=== PATIENT | female | born 1955 | race Two or more races ===

== ENCOUNTER 2019-04-01 18:07 | Inpatient (IN) | payer MEDICAID ==
[~2019-04-01] VITALS: Ht 170.2 cm; Wt 133.8 kg
--- NOTE | 2019-04-01 18:43 | NUR ---
Pt awake but drowsy, able to follow commands, SR on monitor, saturation above 92% on 4 l via nasal cannula. vital signs stable, no complains of pain verbalized.
[2019-04-01] MEDS ORDERED: ALBUTEROL FS 2.5 MG/3 ML VIAL.NEB NEB ONE (19:00)
[2019-04-01] MEDS ORDERED: IPRATROPIUM NEB FS 0.5 MG/2.5 ML AMPUL.NEB NEB ONE (19:00)
[2019-04-01] MEDS ORDERED: methylPREDNISolone SOD SUCC 125 MG/2ML VIAL IV ONE (19:00)
[2019-04-01 19:08] LABS: BASOPHILS # (AUTO) 0.1 /CMM (0.0-0.2); BASOPHILS % (AUTO) 0.5 % (0.0-2.0); EOSINOPHILS % (AUTO) 0.1 % (0.0-6.0); HEMATOCRIT 43 % (33-45); HEMOGLOBIN 13.6 g/dL (11.5-14.8); LYMPHOCYTES # (AUTO) 0.4 /CMM (0.8-4.8); LYMPHOCYTES % (AUTO) 3.9 % (20.0-44.0); MEAN CORPUSCULAR HGB CONC 32 g/dl (31.0-36.0); MEAN CORPUSCULAR VOLUME 85 fL (82-100); MONOCYTES # (AUTO) 0.5 /CMM (0.1-1.30); MONOCYTES % (AUTO) 4.8 % (2.0-12.0); NEUTROPHILS # (AUTO) 10.3 /CMM (1.8-8.9); NEUTROPHILS % (AUTO) 90.7 % (43.0-81.0); PLATELET COUNT (AUTO) 321 /CMM (150-450); RED BLOOD CELL COUNT(AUTO) 5.03 MIL/uL (4.0-5.2); WHITE BLOOD COUNT (AUTO) 11.3 K/uL (4.3-11.0)
[2019-04-01] MEDS ORDERED: methylPREDNISolone SOD SUCC 125 MG/2ML VIAL ONE (19:08)
[2019-04-01] MEDS ORDERED: ALPR1TAB7 PO (19:11)
[2019-04-01] MEDS ORDERED: IBUP-1957 PO (19:11)
[2019-04-01] MEDS ORDERED: TRAZ-252 PO (19:11)
[2019-04-01] MEDS ORDERED: FLUO-120 PO (19:11)
[2019-04-01] MEDS ORDERED: UNK INHALER IH (19:12)
--- NOTE | 2019-04-01 19:15 | NUR ---
PT REFUSED SOLU MEDROL. PER PT, SHE REACTS BAD TO THE MEDICATION AND MAKES HER VERY ANXIOUS. PA AWARE
--- NOTE | 2019-04-01 19:15 | NUR ---
CALLED [facility]. DATA PROCESSING SPECIALIST WAS PAGED
--- NOTE | 2019-04-01 19:18 | NUR ---
RT PAGED FOR BREATHING TX
--- NOTE | 2019-04-01 19:22 | NUR ---
Pt's care endorsed to LOGAN Johnson for continuity of care. nissa in low and locked position. pt appears in no distress.
[2019-04-01 19:25] LABS: CALCIUM, SERUM 8.9 mg/dL (8.5-10.1); CREATININE 1.3 mg/dL (0.6-1.3); POTASSIUM 4.7 mmol/L (3.5-5.1)
[2019-04-01] MEDS ORDERED: ALBUTEROL FS 2.5 MG/0.5 ML VIAL.NEB ONE (19:29)
[2019-04-01] MEDS ORDERED: IPRATROPIUM NEB FS 0.5 MG/2.5 ML AMPUL.NEB ONE (19:29)
--- NOTE | 2019-04-01 19:40 | NUR ---
SPOKE TO HOUSE SUP FOR TELE BED
--- NOTE | 2019-04-01 19:42 | NUR ---
XRAY AND RT AT BEDSIDE
--- NOTE | 2019-04-01 19:52 | NUR ---
TELE BED 111-1
[2019-04-01] MEDS ORDERED: IV NS 0.9% 1,000 ML BAG IV ONE (20:00)
--- NOTE | 2019-04-01 20:18 | NUR ---
PT AMBULATED TO BATH ROOM ON HER OWN.
[2019-04-01] MEDS ORDERED: *INSULIN REGULAR(HUMULIN R)HUM 100 UNIT/ML VIAL SQ PRN (20:30)
[2019-04-01] MEDS ORDERED: DEXTROSE 50%-WATER 50 ML DISP.SYRIN IV PRN (20:30)
[2019-04-01] MEDS ORDERED: HYDROCODONE/APAP 5/325MG 1 EACH TABLET PO PRN (20:30)
[2019-04-01] MEDS ORDERED: ASPIRIN 325 MG TABLET PO SCH (20:30)
[2019-04-01] MEDS ORDERED: MAGNESIUM HYDROXIDE 30 ML UDC PO PRN (20:30)
[2019-04-01] MEDS ORDERED: Z GUARD REMEDY 2 OZ OINT TP PRN (20:30)
[2019-04-01] MEDS ORDERED: ONDANSETRON HCL/PF 4 MG/2 ML VIAL IVP PRN (20:30)
[2019-04-01] MEDS ORDERED: MAG HYDROX/AL HYDROX/SIMETH 30 ML UDC PO PRN (20:30)
[2019-04-01] MEDS ORDERED: IOHEXOL-350 100 ML VIAL IV ONE (20:37)
[2019-04-01] MEDS ORDERED: CT SWABBABLE VALVE TRANS SET 1 EA INFUS.SET MC ONE (20:38)
[2019-04-01] MEDS ORDERED: IV NS 0.9% 250 ML IV ONE (20:38)
--- NOTE | 2019-04-01 20:47 | NUR ---
PT TO CT ON AVA. 2ND IV LINE OBTAINED ON R AC 20G.
[2019-04-01] MEDS ORDERED: methylPREDNISolone SOD SUCC 125 MG/2ML VIAL IV SCH (21:00)
--- NOTE | 2019-04-01 21:22 | NUR ---
CALLED FOR AN ICU BED
--- NOTE | 2019-04-01 21:23 | NUR ---
ICU 256
[2019-04-01] MEDS ORDERED: NALOXONE HCL 0.4 MG/ML AMPUL ONE (21:24)
[2019-04-01] MEDS: NALOXONE HCL 0.4 MG/ML AMPUL IV PRN (21:32)
--- NOTE | 2019-04-01 21:35 | NUR ---
PT WAS NOTED LETHARGIC AND BREATHING DEEP AND SHALLOW WITH O2 SAT IN THE MID 60% MD MADE AWARE AND WAS AT BEDSIDE. PT WAS ARROUSABLE WITH VERBAL STIMULI. MD ORDERED TO GIVE NARCAN 0.4MG IV AND O2 TO GET PT O2 SAT IN THE 90%. PT WAS PLACED ON NON REBREATHER MASK @ 15LPM. O2 SAT WENT TO 97% AFTER NARCAN AND O2.
[2019-04-01] MEDS ORDERED: ENOXAPARIN SODIUM 30 MG/0.3 ML DISP.SYRIN ONE (21:36)
[2019-04-01] MEDS ORDERED: ENOXAPARIN SODIUM 100 MG/ML DISP.SYRIN SQ ONE (21:36)
--- NOTE | 2019-04-01 21:43 | NUR ---
PT PLACED ON NC @ 5LPM, YISSEL G@ 93%
--- NOTE | 2019-04-01 21:43 | NUR ---
Percy alamnza in [facility] - 04/01/19 at 2215 by SANDY P
[2019-04-01 21:48] LABS: ABG BASE EXCESS -3.4 mmol/L; ABG PH 7.233 (7.350-7.450); ABG PO2 57.6 mmHg (75.0-100.0); AaDO2 128.3 mmHg; COHb 1.2 % (0.5-1.5); MetHb 0.1 % (0.0-1.5); O2Hb 85.9 % (94.0-97.0); SITE, ABG Right Radial; VENT MODE, BG NASAL CANNULA
--- NOTE | 2019-04-01 21:48 | NUR ---
REPORT GIVEN TO CHILO FORD
[2019-04-01] MEDS ORDERED: ENOXAPARIN SODIUM 120 MG/0.8 ML DISP.SYRIN SQ SCH (22:00)
[2019-04-01 22:07] VITALS: BP 147/92
--- NOTE | 2019-04-01 22:08 | NUR ---
PT TRANSPORTED TO UNIT ON [facility] WITH EMT AND RN AT BEDSIDE W/ ACLS PROTOCOL OBSERVED DURING TRANSPORT. NAD NOTED DURING TRANSPORT. PT TRANSFERRED FROM [facility] TO BED ON HER OWN.
[2019-04-01] MEDS: IV NS 0.9% 1,000 ML IV PRN (22:11)
[2019-04-01] MEDS: METOPROLOL TARTRATE 25 MG TABLET PO SCH (22:12)
[2019-04-01] MEDS: BLOOD SUGAR DIAGNOSTIC 1 EACH STRIP VI SCH (22:34)
[2019-04-01 22:55] VITALS: BP 165/82
[2019-04-01 23:00] VITALS: BP 142/93
[2019-04-01] MEDS ORDERED: hydrALAZINE HCL IV 20 MG VIAL IV PRN (23:00)
--- NOTE | 2019-04-01 23:11 | NUR ---
JAVA LEAD DEVELOPER. ADMISSION. RECEIVED THE PT FROM ER VIA [facility]. PT AWAKE, RASHI LETHARGIC, OXYGEN 4L VIA NASAL CANNULA SAT 92%. PT IS TACHYPNEIC. HOB ELEVATED, IV RT AND LT HAND, WILL CONTINUE TO MONITOR VITALS.
--- NOTE | 2019-04-01 23:14 | NUR ---
FOUNDRY MOLDER MD JAYSON BURGOS AT BED SIDE EVALUATE THE PATIENT. OXYGEN 54L VIA BASAL CANNULA. SAT 80. BIPAP ORDERED. SETTINGS 20/5,RATE IS 16, FIO2 100%, WILL CONTINUE TO MONITOR VITALS.
[2019-04-02] VITALS (31 sets, daily range): BP systolic 99–160; BP diastolic 40–102
[2019-04-02 00:06] LABS: ABG BASE EXCESS -6.5 mmol/L; ABG OXYGEN SATURATION 97.8 % (92.0-98.5); ABG PCO2 66.2 mmHg (35.0-45.0); ABG PH 7.162 (7.350-7.450); ABG PO2 143.6 mmHg (75.0-100.0); AaDO2 503.2 mmHg; COHb 0.9 % (0.5-1.5); MetHb 0.2 % (0.0-1.5); O2Hb 96.7 % (94.0-97.0); PEEP,BG 5 cm H2O; SITE, ABG Right Radial; VENT MODE, BG BIPAP
[2019-04-02] MEDS: NALOXONE HCL 0.4 MG/ML AMPUL IV PRN (00:39)
--- NOTE | 2019-04-02 00:45 | NUR ---
MIG TIG WELDER 1 HOUR AFTER PLACING PT ON BIPAP ABG WAS REPEATED: [id number], [id number], [id number], [id number]. Malou BURNS WAS NOTIFIED AND HE CALLED ER MD FOR INTUBATION. WHEN Malou GUARDADO FROM ER CAME TO ICU HE ORDERED TO PREPARE FOR INTUBATION ETOMIDATE 20 MG & ROCURONIUM 80 MG., WHICH WAS DONE. BUT LATER MD CHANGED HIS MIND TO INTUBATE THE PT. SO MEDS WERE NOT GIVEN AND WERE DISCARDED.
--- NOTE | 2019-04-02 01:00 | NUR ---
HEALTH SCIENCES DEPARTMENT CHAIR ABG DONE, MD JAYSON BURGOS MADE AWARE, CALLED ER MD FOR INTUBATION. ER MD ORDERED [id number] GIVEN. PT IS LETHARGIC. WILL CONTINUE TO MONITOR
--- NOTE | 2019-04-02 01:06 | NUR ---
EXECUTIVE OFFICE MANAGER. FOLEYS CATHETER FG 16 PLACED WITH OUT DIFFICULT, CONCENTRATED URINE DRAINING.
[2019-04-02 01:59] LABS: PEEP,BG 5 cm H2O; SITE, ABG Right Radial
[2019-04-02 02:06] LABS: APPEARANCE,URINE CLEAR (CLEAR); BILIRUBIN,URINE NEGATIVE (NEGATIVE); BLOOD, URINE TRACE-INTA Ery/uL (NEGATIVE); COLOR,URINE YELLOW (YELLOW); KETONES,URINE NEGATIVE (NEGATIVE); LEUKOCYTE ESTERASE ,URINE NEGATIVE (NEGATIVE); NITRITE, URINE NEGATIVE (NEGATIVE); PH,URINE 5.5 (5.0-8.0); PROTEIN,URINE NEGATIVE (NEGATIVE); UGLUCOSE NEGATIVE (NEGATIVE); UROBILINOGEN,URINE 0.2 EU/dL (0.2)
[2019-04-02 02:22] LABS: BACTERIA,URINE Few /HPF (None Seen); SQUAMOUS EPITHELIAL CELL,UR Few /HPF (None Seen); WBC,URINE 0-2 /HPF (0-3)
--- NOTE | 2019-04-02 04:27 | NUR ---
REAL ESTATE INSTRUCTOR URINE DRUG RESULT MADE AWARE,
--- NOTE | 2019-04-02 04:29 | NUR ---
BAND SAW RUNNER, AM CARE, ORAL CARE, BED BATH GIVEN. LINEN CHANGED, REMAINING SAME BIPAP SETTING TOLERATED WELL.IVF NS 75ML/H. HOB ELEVATED, FC PATENT, URINE DRAINING. WILL CONTINUE TO MONITOR VITALS.
[2019-04-02 04:42] LABS: BASOPHILS % (AUTO) 0.2 % (0.0-2.0); HEMATOCRIT 40 % (33-45); HEMOGLOBIN 12.8 g/dL (11.5-14.8); LYMPHOCYTES # (AUTO) 0.7 /CMM (0.8-4.8); LYMPHOCYTES % (AUTO) 5.9 % (20.0-44.0); MEAN CORPUSCULAR HGB CONC 32 g/dl (31.0-36.0); MEAN CORPUSCULAR VOLUME 84 fL (82-100); MONOCYTES # (AUTO) 0.5 /CMM (0.1-1.30); MONOCYTES % (AUTO) 4.6 % (2.0-12.0); NEUTROPHILS # (AUTO) 10.3 /CMM (1.8-8.9); NEUTROPHILS % (AUTO) 89.3 % (43.0-81.0); PLATELET COUNT (AUTO) 307 /CMM (150-450); RED BLOOD CELL COUNT(AUTO) 4.78 MIL/uL (4.0-5.2); WHITE BLOOD COUNT (AUTO) 11.5 K/uL (4.3-11.0)
[2019-04-02 04:55] LABS: CALCIUM, SERUM 8.5 mg/dL (8.5-10.1); CREATININE 0.9 mg/dL (0.6-1.3); MAGNESIUM 1.9 mg/dL (1.8-2.4); PHOSPHORUS 3.7 mg/dL (2.5-4.9); POTASSIUM 4.7 mmol/L (3.5-5.1)
[2019-04-02] MEDS ORDERED: ETOMIDATE 2 MG/ML VIAL IV ONE (07:23)
[2019-04-02] MEDS ORDERED: ROCURONIUM BROMIDE 50 MG/5 ML IV ONE (07:23)
--- NOTE | 2019-04-02 07:30 | NUR ---
DIRECTOR PROCESS IMPROVEMENT INITIAL NOTE RECEIVED PATIENT, ASLEEP, AROUSABLE. NO RESPIRATORY DISTRESS NOTED, ON BIPAP. ON TELE MONITOR SR WITH PAC AND PVC. F/C PATENT, INTACT, DRAINING BY GRAVITY. PERIPHERAL LINES PATENT, INTACT, IVF RUNNING. HOB ELEVATED. SIDE RAILS UP AND LOCKED. BED KEPT AT LOWEST POSITION. CALL LIGHT KEPT WITHIN EASY REACH. WILL CONTINUE TO MONITOR.
--- NOTE | 2019-04-02 07:51 | NUR ---
DANCE TEACHER NOTE SEEN AND EXAMINED BY DR. BUI
--- NOTE | 2019-04-02 08:00 | NUR ---
RT PATIENT AWAKE, ALERT, NO COMPLAINTS OF SOB. WAS REMOVED FROM BIPAP AND PLACED ON SUPPLEMENTAL O2 TOLERATING WELL. WILL CONT TO MONITOR PATIENT CLOSELY
--- NOTE | 2019-04-02 08:00 | NUR ---
FINISHING SUPERVISOR PLASTIC SHEETS NOTE PATIENT AWAKE ALERT AND ORIENTED. PLACED ON NC 6LPM. SIGNIFICANT OTHER ZAHRAA AT BEDSIDE. PER PATIENT, OK TO GIVE ZAHRAA INFORMATION REGARDING HER CONDITION AND ANY UPDATES. CONTACT INFORMATION PLACED IN CHART. WILL CONTINUE TO MONITOR.
[2019-04-02] MEDS: BLOOD SUGAR DIAGNOSTIC 1 EACH STRIP VI SCH ×4 (08:25→21:53)
[2019-04-02] MEDS: ACETAMINOPHEN 325 MG TABLET PO PRN ×2 (08:27→16:34)
[2019-04-02] MEDS: ASPIRIN 325 MG TABLET PO SCH (08:27)
[2019-04-02] MEDS: ENOXAPARIN SODIUM 60 MG/0.6 ML DISP.SYRIN SQ SCH ×2 (08:31→21:54)
--- NOTE | 2019-04-02 08:35 | NUR ---
LABORER CAR BARN NOTE PER DR. BUI DON'T GIVE BETA ALFONZO UNTIL LABORER POLE CREW APPROVES
--- NOTE | 2019-04-02 08:38 | NUR ---
MIDDLE SCHOOL ART TEACHER NOTE PATIENT COMPLAINED OF 8/10 HEADACHE. PRN TYLENOL GIVEN. WILL CONTINUE TO MONITOR.
[2019-04-02] MEDS: METOPROLOL TARTRATE 25 MG TABLET PO SCH ×2 (08:39→21:00)
[2019-04-02] MEDS: INSULIN REGULAR, HUMAN 100 UNIT/ML 3 ML VIAL SQ PRN ×2 (08:54→12:12)
[2019-04-02] MEDS ORDERED: ENOXAPARIN SODIUM 120 MG/0.8 ML DISP.SYRIN SQ SCH (09:00)
[2019-04-02 09:19] LABS: ABG BASE EXCESS -0.7 mmol/L; ABG OXYGEN SATURATION 92.9 % (92.0-98.5); ABG PCO2 60.8 mmHg (35.0-45.0); ABG PO2 68.8 mmHg (75.0-100.0); AaDO2 182.9 mmHg; VENT MODE, BG NASAL CANNULA
[2019-04-02] MEDS: IV NS 0.9% 1,000 ML IV PRN (12:00)
[2019-04-02] MEDS: IPRATROPIUM NEB FS 0.5 MG/2.5 ML AMPUL.NEB NEB SCH ×4 (13:00→23:45)
[2019-04-02 14:12] LABS: ABG BASE EXCESS -2.9 mmol/L; ABG OXYGEN SATURATION 90.4 % (92.0-98.5); ABG PCO2 55.3 mmHg (35.0-45.0); ABG PH 7.268 (7.350-7.450); ABG PO2 63.5 mmHg (75.0-100.0); AaDO2 85.4 mmHg; COHb 0.9 % (0.5-1.5); MetHb 0.2 % (0.0-1.5); O2Hb 89.4 % (94.0-97.0); SITE, ABG Right Radial; VENT MODE, BG 3L N/C
[2019-04-02] MEDS: ALBUTEROL HALF STRENGTH 1.25 MG/3 ML VIAL.NEB NEB SCH ×3 (15:20→23:45)
--- NOTE | 2019-04-02 19:31 | NUR ---
TOBACCO HANGER.INITIAL ASSESSMENT. RECEIVED THE PT REST ON THE BED,AWAKE,ALERT, FOLLOW COMMANDS. OXYGEN 3L VIA NASAL CANNULA. SAT 98%. NO ACUTE DISTRESS NOTED. FAMILY MEDICINE RESIDENT SHOWING NSR. IC RT HAND 20G. IVF NS 75ML/H, HOB ELEVATED, FC PATENT. URINE DRAINING. AFEBRILE. WILL CONTINUE TO MONITOR VITALS
--- NOTE | 2019-04-02 19:40 | NUR ---
MACHINE MAINTENANCE REPAIRER CLOSING NOTE NO SIGNIFICANT CHANGES. PATIENT TOLERATING NC AT 3LPM. DENIES SOB. DENIES PAIN OR DISCOMFORT AT THIS TIME. ATE MEALS INDEPENDENTLY. ALL DUE MEDS GIVEN. IVF RUNNING AT [facility]. LH PERIPHERAL IV PULLED OUT ACCIDENTALLY BY PATIENT AT END OF SHIFT. PER PM NURSE SHE WILL INSERT ANOTHER. ALL NEEDS ANTICIPATED AND MET. FOR NOCTURNAL BIPAP. AM CARE PROVIDED. HOB ELEVATED. SIDE RAILS UP AND LOCKED. BED KEPT AT LOWEST POSITION. CALL LIGHT KEPT WITHIN EASY REACH. CONTINUITY OF CARE ENDORSED TO PM SHIFT.
--- NOTE | 2019-04-02 22:45 | NUR ---
TWISTER TENDER PAPER. PT HEART RATE IS PAUSING 35, METOPROLOL NOT GIVEN 2100. MD BURNS MADE AWARE.
--- NOTE | 2019-04-02 22:46 | NUR ---
RETURN TO FACTORY CLERK SATURATION IS 85. BIPAP PLACED. PT WAS ANXIOUS AND CRYING. PER PATIENT TAKING AT HOME XANAX 2MGX2. NOTIFIED MD BURNS. NEW ORDER RECEIVED.
[2019-04-02] MEDS: ALPRAZOLAM 1 MG TABLET PO SCH (23:28)
[2019-04-03] VITALS (22 sets, daily range): BP systolic 115–154; BP diastolic 66–96
[2019-04-03] MEDS: IV NS 0.9% 1,000 ML IV PRN (00:53)
[2019-04-03] MEDS: IPRATROPIUM NEB FS 0.5 MG/2.5 ML AMPUL.NEB NEB SCH ×6 (02:39→23:16)
[2019-04-03] MEDS: ALBUTEROL HALF STRENGTH 1.25 MG/3 ML VIAL.NEB NEB SCH ×6 (02:39→23:16)
--- NOTE | 2019-04-03 03:20 | NUR ---
BASEBALL INSPECTOR AM CARE.ORAL CARE, BED BATH GIVEN. LINEN CHANGED, REMAINING SAME BIPAP SETTING TOLERATED WELL SAT 98%. PRESS SET UP PERSON SHOWING JUNCTIONAL, IV RT AND LT HAND IVF NS 75 ML/H. HOB ELEVATED, FC PATENT. URINE DRAINING.AFEBRILE. WILL CONTINUE TO MONITOR VITALS.
[2019-04-03 04:19] LABS: BASOPHILS % (AUTO) 0.2 % (0.0-2.0); EOSINOPHILS % (AUTO) 0.9 % (0.0-6.0); HEMATOCRIT 37 % (33-45); HEMOGLOBIN 11.8 g/dL (11.5-14.8); LYMPHOCYTES # (AUTO) 1.3 /CMM (0.8-4.8); LYMPHOCYTES % (AUTO) 17.1 % (20.0-44.0); MEAN CORPUSCULAR HGB CONC 32 g/dl (31.0-36.0); MEAN CORPUSCULAR VOLUME 84 fL (82-100); MONOCYTES # (AUTO) 0.6 /CMM (0.1-1.30); MONOCYTES % (AUTO) 7.9 % (2.0-12.0); NEUTROPHILS # (AUTO) 5.7 /CMM (1.8-8.9); NEUTROPHILS % (AUTO) 73.9 % (43.0-81.0); PLATELET COUNT (AUTO) 244 /CMM (150-450); WHITE BLOOD COUNT (AUTO) 7.8 K/uL (4.3-11.0)
[2019-04-03 04:43] LABS: CALCIUM, SERUM 8.5 mg/dL (8.5-10.1); CREATININE 0.7 mg/dL (0.6-1.3); MAGNESIUM 1.7 mg/dL (1.8-2.4); PHOSPHORUS 2.5 mg/dL (2.5-4.9); POTASSIUM 4.1 mmol/L (3.5-5.1)
--- NOTE | 2019-04-03 07:30 | NUR ---
CATH LAB RADIOLOGICAL TECHNOLOGIST INITIAL NOTE RECEIVED PATIENT AWAKE ALERT AND ORIENTED. DENIES SOB. DENIES PAIN OR DISCOMFORT. STATES SHE FEELS MUCH BETTER TODAY. NO RESPIRATORY DISTRESS NOTED, ON 3LPMO2 VIA NC. ON TELE MONITOR ACCELERATED JUNCTIONAL. SKIN WARM AND DRY TO TOUCH. IVF RUNNING. ASSISTED TO BEDSIDE CHAIR FOR BREAKFAST, WITH NO COMPLICATION. WILL CONTINUE TO MONITOR.
[2019-04-03] MEDS: BLOOD SUGAR DIAGNOSTIC 1 EACH STRIP VI SCH ×4 (07:39→21:53)
--- NOTE | 2019-04-03 08:00 | NUR ---
PUBLIC RELATIONS STUDIES DIRECTOR NOTE INFORMED DR. BUI PATIENT HAS EPISODES OF CARMEN LOW 40'S NOT SUSTAINED. WILL CONTINUE TO MONITOR.
--- NOTE | 2019-04-03 08:03 | NUR ---
RT PATIENT REC'D AWAKE, ALERT, WITH ZERO SOB. PATIENT REFUSED RESP HHN TX. RN NOTIFIED. PATIENT SITTING IN CHAIR APPEARS VERY COMFORTABLE
--- NOTE | 2019-04-03 08:30 | NUR ---
PODIATRIST ASSISTANT NOTE LINENS CHANGED, ADLS DONE WITH MINIMUM ASSISTANCE. ASSISTED BACK TO BED .
[2019-04-03 09:00] LABS: ABG OXYGEN SATURATION 94.4 % (92.0-98.5); ABG PH 7.386 (7.350-7.450); ABG PO2 73.8 mmHg (75.0-100.0); AaDO2 101.7 mmHg; COHb 0.6 % (0.5-1.5); MetHb 0.2 % (0.0-1.5); O2Hb 93.6 % (94.0-97.0); SITE, ABG Right Radial; VENT MODE, BG 3L NC
[2019-04-03] MEDS: METOPROLOL TARTRATE 25 MG TABLET PO SCH ×2 (09:00→21:39)
[2019-04-03] MEDS: ASPIRIN 325 MG TABLET PO SCH (09:21)
[2019-04-03] MEDS: ENOXAPARIN SODIUM 60 MG/0.6 ML DISP.SYRIN SQ SCH ×2 (09:21→21:53)
[2019-04-03] MEDS: ALPRAZOLAM 1 MG TABLET PO SCH ×3 (09:21→18:53)
--- NOTE | 2019-04-03 09:26 | NUR ---
CHISEL GRINDER NOTE RELAYED ABG RESULT NNO
--- NOTE | 2019-04-03 11:30 | NUR ---
CUSTOMER ENGAGEMENT ANALYST NOTE PATIENT COMPLAINING ABOUT HASKINS CATHETER, REQUESTED FOR IT TO BE REMOVED. F/C REMOVED WITH NO COMPLICATIONS. WILL CONTINUE TO MONITOR.
[2019-04-03] MEDS: Magnesium 1GM/D5W 100ML PREMIX 100 ML IV SCH ×2 (11:37→12:56)
--- NOTE | 2019-04-03 12:11 | NUR ---
MUCK HAULER NOTE PATIENT TO BE TRANSFERRED TO ROOM 108. PATIENT AWARE. REPORT GIVEN TO LOGAN OLIVER.
--- NOTE | 2019-04-03 12:50 | NUR ---
RN NOTES RECEIVED PT FROM ICU IN ROOM 109, PT IS A/Ox4, ON 2L O2 N/C , NO SOB NOTED, HR IN 80' , PT UP TO BATHROOM WITH ASSIST , R AC IV G 2O AND L HAND IV SG 18 SITE CLEAN, DRY AND INTACT, NS AT 75CC /HR RUNNING , SR UP x3, CALL LIGHT WITHIN EASY REACH , BED LOCKED AND IN LOWEST POSITION, CONTINUE TO MONITOR .
--- NOTE | 2019-04-03 12:51 | NUR ---
METHODS SPECIALIST ENGINEER NOTE PATIENT TRANSFERRED VIA WHEELCHAIR WITH ALL HER BELONGINGS, IN STABLE CONDITION.
--- NOTE | 2019-04-03 15:17 | NUR ---
RT PATIENT CONT TO REFUSE HHN TX. PATIENT AWAKE, ALERT, WITH ZERO SOB. PATIENT REFUSED RESP HHN TX. RN NOTIFIED. PATIENT SITTING IN BED APPEARS VERY COMFORTABLE
--- NOTE | 2019-04-03 18:50 | NUR ---
RN NOTES PT WANTS TO LEAVE AMA, DR BUI NOTIFED, EXPLAINED TO PT HOW IMPORTANT IS TO FOLLOW THE PLAN OF CARE, RISKS OF HAVING PE AND LEAVING AMA . PT DECIDED TO STAY , AND FOLLOW PLAN OF CARE .
--- NOTE | 2019-04-03 19:05 | NUR ---
RN NOTES PT STABLE, WILL ENDOSE TO CLOTH WEAVER NURSE FOR CONTINUITY OF CARE.
[2019-04-04] VITALS: BP 153/89
[2019-04-04 00:14] VITALS: BP 153/89
[2019-04-04] MEDS: ACETAMINOPHEN 325 MG TABLET PO PRN (01:55)
[2019-04-04] MEDS: ALBUTEROL HALF STRENGTH 1.25 MG/3 ML VIAL.NEB NEB SCH ×4 (03:30→16:30)
[2019-04-04] MEDS: IPRATROPIUM NEB FS 0.5 MG/2.5 ML AMPUL.NEB NEB SCH ×4 (03:30→16:30)
[2019-04-04 04:00] VITALS: BP 117/69
[2019-04-04 06:46] LABS: BASOPHILS % (AUTO) 0.7 % (0.0-2.0); HEMATOCRIT 35 % (33-45); HEMOGLOBIN 11.4 g/dL (11.5-14.8); LYMPHOCYTES # (AUTO) 1.3 /CMM (0.8-4.8); LYMPHOCYTES % (AUTO) 21.6 % (20.0-44.0); MEAN CORPUSCULAR HGB CONC 33 g/dl (31.0-36.0); MEAN CORPUSCULAR VOLUME 83 fL (82-100); MONOCYTES # (AUTO) 0.5 /CMM (0.1-1.30); MONOCYTES % (AUTO) 8.5 % (2.0-12.0); NEUTROPHILS # (AUTO) 4.2 /CMM (1.8-8.9); NEUTROPHILS % (AUTO) 67.2 % (43.0-81.0); PLATELET COUNT (AUTO) 226 /CMM (150-450); WHITE BLOOD COUNT (AUTO) 6.2 K/uL (4.3-11.0)
[2019-04-04 07:00] LABS: CALCIUM, SERUM 8.4 mg/dL (8.5-10.1); CREATININE 0.7 mg/dL (0.6-1.3); MAGNESIUM 1.8 mg/dL (1.8-2.4); POTASSIUM 3.6 mmol/L (3.5-5.1)
--- NOTE | 2019-04-04 07:30 | NUR ---
television installer helper initial notes received pt in bed, a/ox4. on 3l nc. ns infusing via L hand at 75 ml/hr. no s/sx of infection. pt expressing wanting to go home today. safety measures in place. will continue to monitor.
[2019-04-04 08:00] VITALS: BP 165/67
[2019-04-04] MEDS: ASPIRIN 325 MG TABLET PO SCH (08:37)
[2019-04-04] MEDS: ALPRAZOLAM 1 MG TABLET PO SCH (08:39)
[2019-04-04] MEDS: METOPROLOL TARTRATE 25 MG TABLET PO SCH (08:39)
[2019-04-04] MEDS: ENOXAPARIN SODIUM 60 MG/0.6 ML DISP.SYRIN SQ SCH (08:41)
[2019-04-04] MEDS: BLOOD SUGAR DIAGNOSTIC 1 EACH STRIP VI SCH ×2 (08:49→13:20)
[2019-04-04 12:00] VITALS: BP 131/71
[2019-04-04] MEDS: IV NS 0.9% 1,000 ML IV PRN (14:49)
[2019-04-04] MEDS ORDERED: APIX2.5T PO (14:57)
[2019-04-04] MEDS ORDERED: LISI2.5T2 PO (14:57)
[2019-04-04] MEDS ORDERED: ALBU18HF2 INH (14:57)
[2019-04-04 16:00] VITALS: BP 140/84
--- NOTE | 2019-04-04 16:50 | NUR ---
COMPONENT INSPECTOR NOTES PT EDUCATION GIVEN/PRESCRIPTION/ IV REMOVED. PT HAD NO WOUNDS RECORDED ON ADMISSION. TELE BOX REMOVED. PT TRANSPORTED HOME BY FRIEND MIGUELITO. AMANDA FOSTER TOOK PT OUT IN WHEELCHAIR. PT UNDERSTOOD ALL INSTRUCTIONS.
[2019-04-04] MEDS ORDERED: APIXABAN 2.5 MG TABLET PO SCH (17:00)
== END 2019-04-04 18:57 | disposition home or self-care (01) | DRG 134 ==
LOC: ER 18:09 → TELE1 19:55 → ICU 21:24 → TELE1 04-03 12:31
PROVIDERS: ADMIT Internal Medicine; ATTEND Registered Nurse
PROC: 5A09357 Assistance with Respiratory Ventilation, Less than 24 Consecutive Hours, Continuous Positive Airway Pressure (ICD-10-PCS; principal; 2019-04-01)
PROC: 5A09357 Assistance with Respiratory Ventilation, Less than 24 Consecutive Hours, Continuous Positive Airway Pressure (ICD-10-PCS; 2019-04-03)
DX: I26.99 Other pulmonary embolism without acute cor pulmonale (principal); I21.A1 Myocardial infarction type 2; J96.01 Acute respiratory failure with hypoxia; J96.02 Acute respiratory failure with hypercapnia; D72.829 Elevated white blood cell count, unspecified; E03.9 Hypothyroidism, unspecified; E83.42 Hypomagnesemia; I10 Essential (primary) hypertension; J45.909 Unspecified asthma, uncomplicated; N17.0 Acute kidney failure with tubular necrosis; Z91.19 Patient's noncompliance with other medical treatment and regimen; E66.2 Morbid (severe) obesity with alveolar hypoventilation; Z68.42 Body mass index [BMI] 45.0-49.9, adult; F90.9 Attention-deficit hyperactivity disorder, unspecified type; F41.9 Anxiety disorder, unspecified; F13.90 Sedative, hypnotic, or anxiolytic use, unspecified, uncomplicated
CPT/HCPCS: 36415; 36600; 71045-TC; 80048-TC; 80061-TC; 80305; 81000-TC; 82803-TC; 82962-TC; 83735-TC; 84100-TC; 84443-TC; 84484-TC; 85025-TC; 87081-TC; 87086-TC; 93307-TC; 93970-TC; 94799-TC; G0378; J1650; J1815; J2310; J2930; J3475; J3490; J7030; J7050; Q9967

== ENCOUNTER 2019-07-29 07:24 | Emergency (ER) | payer MEDICAID ==
[~2019-07-29] VITALS: Ht 170.2 cm; Wt 148.8 kg
[~2019-07-29 07:24] MED LIST: ALBU18HF2 INH; APIX2.5T PO; LISI2.5T2 PO
--- NOTE | 2019-07-29 07:35 | NUR ---
[id number] FOR HEADACHE/SOB. TOOK PERCOCET AT 0400 NO RELIEF. PATIENT A/OX4, BREATHING EVEN AND UNLABORED, ON O2 AT 4LPM VIA NC WITH SPO2 OF 96%. ATTACHED TO THE FLUX MIXER. IV LINE ESTABLISHED ON RIGHT AC G20.
[2019-07-29] MEDS ORDERED: METOCLOPRAMIDE HCL 10 MG/2 ML VIAL IV ONE (08:00)
[2019-07-29] MEDS ORDERED: IBUPROFEN 600 MG TABLET PO ONE ×2 (08:00→08:02)
[2019-07-29] MEDS ORDERED: METOCLOPRAMIDE HCL 10 MG/2 ML VIAL ONE (08:02)
[2019-07-29 08:04] LABS: BASOPHILS % (AUTO) 0.8 % (0.0-2.0); EOSINOPHILS % (AUTO) 3.3 % (0.0-6.0); HEMATOCRIT 33 % (33-45); HEMOGLOBIN 10.6 g/dL (11.5-14.8); LYMPHOCYTES # (AUTO) 0.5 /CMM (0.8-4.8); LYMPHOCYTES % (AUTO) 11.3 % (20.0-44.0); MEAN CORPUSCULAR HGB CONC 33 g/dl (31.0-36.0); MEAN CORPUSCULAR VOLUME 87 fL (82-100); MONOCYTES # (AUTO) 0.7 /CMM (0.1-1.30); MONOCYTES % (AUTO) 15.3 % (2.0-12.0); NEUTROPHILS # (AUTO) 3.3 /CMM (1.8-8.9); NEUTROPHILS % (AUTO) 69.3 % (43.0-81.0); PLATELET COUNT (AUTO) 214 /CMM (150-450); RED BLOOD CELL COUNT(AUTO) 3.76 MIL/uL (4.0-5.2); WHITE BLOOD COUNT (AUTO) 4.8 K/uL (4.3-11.0)
[2019-07-29 08:11] LABS: CALCIUM, SERUM 8.1 mg/dL (8.5-10.1); CREATININE 0.8 mg/dL (0.6-1.3)
[2019-07-29 08:16] LABS: ALBUMIN 2.4 g/dL (3.4-5.0); BILIRUBIN,TOTAL 0.2 mg/dL (0.2-1.0); TOTAL PROTEIN, SERUM 5.9 g/dL (6.4-8.2)
[2019-07-29 08:20] LABS: APPEARANCE,URINE Turbid (CLEAR); BILIRUBIN,URINE Negative (NEGATIVE); BLOOD, URINE Moderate Ery/uL (NEGATIVE); COLOR,URINE Yellow (YELLOW); KETONES,URINE Negative (NEGATIVE); LEUKOCYTE ESTERASE ,URINE Moderate (NEGATIVE); NITRITE, URINE Positive (NEGATIVE); PH,URINE 6.5 (5.0-8.0); PROTEIN,URINE Negative (NEGATIVE); UGLUCOSE Negative (NEGATIVE)
[2019-07-29 08:37] LABS: BACTERIA,URINE Many /HPF (None Seen); SQUAMOUS EPITHELIAL CELL,UR Few /HPF (None Seen); WBC,URINE TOO NUMEROUS TO COUN /HPF (0-3)
--- NOTE | 2019-07-29 10:37 | NUR ---
patient sleeping, vs stable. O2 lowered to 2lpm via nc with spo2 of 92%.
--- NOTE | 2019-07-29 11:54 | NUR ---
[facility] ETA 1330 TRIP#[id number]
[2019-07-29 12:59] VITALS: BP 115/64
== END 2019-07-29 13:53 | disposition home or self-care (01) ==
LOC: ER 07:24
DX: R51 Headache (principal); I10 Essential (primary) hypertension; J45.909 Unspecified asthma, uncomplicated; F41.9 Anxiety disorder, unspecified; F90.9 Attention-deficit hyperactivity disorder, unspecified type; Z60.2 Problems related to living alone; Z79.899 Other long term (current) drug therapy
CPT/HCPCS: 36415; 70450; 80053; 81001; 85025; 87086; 87186; 96374; 99284; J2765; 81000-TC